=== PATIENT | male | born 1940 | race Caucasian/White ===

== ENCOUNTER 2016-11-09 23:13 | Emergency (ER) | payer MEDICARE ==
--- NOTE | 2016-11-09 23:40 | EDM.PDOC ---
ED HPI GENERAL MEDICAL PROBLEM - General Chief Complaint: Upper Extremity Injury/Pain Stated Complaint: arm redness Time Seen by Provider: 11/09/16 23:23 Source of Information: Reports: Patient History Limitations: Reports: No Limitations - History of Present Illness INITIAL COMMENTS - FREE TEXT/NARRATIVE: Patient sustained small skin tear on back of right hand several days ago, uncertain as to how. Tonight noticed red streak coming from the tear. Streak travels in thin line up forearm. No increased pain in area of injury. No fevers/chills. No other complaints. Is visiting from out of town. Says he has numerous medication allergies, including some allergies to antibiotics. He knows that one allergy is to PCN. He does not have the list of medications with him. Patient is from [place]. - Related Data Home Meds: Home Meds Aspirin [Low Dose Aspirin EC] 81 mg PO DAILY 11/09/16 [History] Budesonide/Formoterol [Symbicort 160-4.5 MCG] 11/09/16 [History] Budesonide/Formoterol [Symbicort 160-4.5 MCG] 6 mg .ROUTE BID 11/09/16 [History] Tamsulosin HCl 0.4 mg PO DAILY 11/09/16 [History] glipiZIDE [Glipizide Xl] 5 mg PO DAILY 11/09/16 [History] Past Medical History Respiratory History: Reports: COPD Genitourinary History: Reports: BPH Endocrine/Metabolic History: Reports: Diabetes, Type II Review of Systems - Review of Systems Review Of Systems: ROS reveals no pertinent complaints other than HPI. ED EXAM, GENERAL - Physical Exam Exam: See Below Exam Limited By: No Limitations General Appearance: Alert, WD/WN, No Apparent Distress Eye Exam: Bilateral Eye: EOMI, PERRL Head: Atraumatic, Normocephalic Neck: Supple Respiratory/Chest: No Respiratory Distress Extremities: Other (small 1cm by 1cm flaplike skin tear noted on back of right hand. Mild erythema over the site. Not tender with palpation. No active drainage. Fingers/hand/wrist have full ROM. Very faint thin red streak noted to come from skin tear and travel proximally towards elbow. No acute lymphadenopathy noted. ) Neurological: Alert, Oriented, Normal Cognition, Normal Gait, No Motor/Sensory Deficits Psychiatric: Normal Affect, Normal Mood Skin Exam: Warm, Dry Course - Vital Signs Last Recorded V/S: Last Vital Signs Temp 36.5 C 11/09/16 23:18 Pulse 86 11/09/16 23:18 Resp 16 11/09/16 23:18 BP 160/62 H 11/09/16 23:18 Pulse Ox 99 11/09/16 23:18 - Orders/Labs/Meds Labs: Laboratory Tests 11/09/16 11/09/16 Range/Units 23:45 23:45 WBC 8.8 (4.0-10.2) K/uL RBC 4.69 (4.33-5.41) M/uL Hgb 14.7 (13.1-16.8) g/dL Hct 43.9 (39.0-49.0) % MCV 93.6 (84.0-98.0) fL MCH 31.3 (28.2-33.3) pg MCHC 33.5 (31.7-36.0) g/dL RDW 13.3 (11.2-14.1) % Plt Count 181 (150-350) K/uL MPV 10.30 (7.00-11.50) fL Sodium 142 (136-145) mmol/L Potassium 3.9 (3.5-5.1) mmol/L Chloride 106 (98-107) mmol/L Carbon Dioxide 27.8 (21.0-32.0) mmol/L BUN 21 H (7-18) mg/dL Creatinine 0.82 (0.51-1.17) mg/dL Est Cr Clr Drug Dosing TNP Estimated GFR (MDRD) > 60 mL/min Glucose 104 (74-106) mg/dL Calcium 8.5 (8.5-10.1) mg/dL - Re-Assessments/Exams Free Text/Narrative Re-Assessment/Exam: 11/09/16 23:46 CBC/Chem checked. Patient felt to need antibiotic given the changes noted in regards to the skin tear. He does not think he is allergic to Keflex and feels that he has taken Keflex safely in the past. Plan tonight is to send him home with to-go bottle of keflex. Dose to be determined once BUN/Cr reviewed. He is to watch for any adverse reactions such as hives/pruritis/SOB and should immediately d/c the medication if any suggestion of allergy is noted. Patient and his plan to contact his primary provider tomorrow once the clinic in [place] opens up and will have the clinic give them the list of allergies. He is to return to the ER or be seen in our clinic if Keflex is listed as an allergy. He is to follow up otherwise as needed. Departure - Departure Time of Disposition: 23:34 Disposition: DC/Tfer to Acute Hospital 02 Condition: Good Clinical Impression: Cellulitis Qualifiers: Site of cellulitis: extremity Site of cellulitis of extremity: upper extremity Laterality: right Qualified Code(s): L03.113 - Cellulitis of right upper limb - Discharge Information Instructions: Cellulitis, Adult, [id number] Forms: ED Department Discharge Additional Instructions: Call your primary clinic tomorrow and obtain an updated list of your medication allergies. Keep this with you at all times. Keep extra copy in the car. If you see Keflex listed as an allergy, or you notice rash/hives/shortness of breath/swelling/itching then the medication will need to be changed. You can return to the ER or see if they have opening in the clinic. If you have acute hives/swelling come immediately to the ER. Follow up as needed if red streak does not improve or if if worsens. You received approximately half of you antibiotic pills from the ER tonight. You will need to pick the rest up from the pharmacy.
[2016-11-10 00:04] LABS: CHLORIDE,CL 106 mmol/L (98-107); SODIUM,NA 142 mmol/L (136-145)
== END 2016-11-10 00:22 | disposition home or self-care (01) ==
LOC: LL.ED 23:13
DX: S61.411A Laceration without foreign body of right hand, initial encounter (principal); L03.113 Cellulitis of right upper limb; Z79.82 Long term (current) use of aspirin; Z79.899 Other long term (current) drug therapy; X58.XXXA Exposure to other specified factors, initial encounter
CPT/HCPCS: 36415; 80048; 85027; 99283